=== PATIENT | female | born 1970 | race Caucasian/White ===

== ENCOUNTER 2016-08-06 18:54 | Emergency (ER) | payer OTHER ==
[~2016-08-06] VITALS: Ht 160 cm; Wt 97.7 kg
[~2016-08-06 18:54] MED LIST: ASPI325T45 PO; BUPR8MIS SL; CHN5 PO; GABA800T PO; GLC5 PO; HYDR50CA2 PO; HYDR50TA3 PO; LEDI1TAB PO; NAPR-1169 PO; PRAV20TA PO; SENN-61 PO
[2016-08-06 18:59] VITALS: TEMP 36.8; Ht 160 cm; Wt 97.7 kg
[2016-08-06 19:25] VITALS: O2SAT 98
[2016-08-06 19:32] LABS: BASO % 0.3 %; BASO ABS # 0.03 K/uL (0-0.2); COMPLETE YES; EOS % 4.1 %; HEMATOCRIT 37.6 % (37-47); IG% 0.1 %; LYMPH % 46.4 %; LYMPH ABS # 4.03 K/uL (1.2-3.4); MEAN CELL VOLUME 85.5 fL (80-100); MEAN CORPUSCULAR HEMOGLOBIN 29.1 pg (25-34); MEAN PLATELET VOLUME 9.2 fL (7.4-10.4); NEUT % 42.1 %; PLATELET COUNT 290 K/uL (130-400); WHITE BLOOD COUNT 8.69 K/uL (4.8-10.8)
[2016-08-06 19:45] LABS: PROTHROMBIN TIME (PATIENT) 10.2 SECONDS (9.0-12.0)
[2016-08-06 19:54] LABS: ALT/SGPT 25 U/L (12-78); AST/SGOT 25 U/L (15-37); BLOOD UREA NITROGEN 14 mg/dl (7-18); BUN/CREATININE RATIO 13.5 (10-20); CALCIUM 8.7 mg/dl (8.5-10.1); CARBON DIOXIDE 31 mmol/L (21-32); CHLORIDE 99 mmol/L (98-107); GLUCOSE 149 mg/dl (70-99); MAGNESIUM 2.2 mg/dl (1.8-2.4); POTASSIUM 2.8 mmol/L (3.5-5.1); SODIUM 137 mmol/L (136-145)
[2016-08-06 20:03] LABS: ALKALINE PHOSPHATASE 96 U/L (45-117); C-REACTIVE PROTEIN 1.68 mg/dl (0-0.29)
[2016-08-06] MEDS ORDERED: POTASSIUM CHLORIDE 10 MEQ TABCR PO STA (20:23)
[2016-08-06] MEDS ORDERED: POTASSIUM CHLORIDE 10 MEQ / 100ML WTR IV STA (20:23)
--- NOTE | 2016-08-06 20:33 | DIAGNOSTIC IMAGING REPORT ---
ULTRASOUND BILATERAL LOWER EXTREMITY VENOUS CLINICAL HISTORY: Lower extremity edema. COMPARISON STUDY: Right lower extremity venous ultrasound dated 09/16/2015. TECHNIQUE: Real-time, grayscale, and color Doppler sonography of the deep veins of the right and left lower extremity was performed from the inguinal crease to the calf. Compression and augmentation were utilized. FINDINGS: There is no sonographic evidence of deep venous thrombosis identified in the right or left lower extremity. The common femoral, superficial femoral, and popliteal veins are patent and normally compressible bilaterally. The greater saphenous vein and the profunda femoris vein at the junction with the common femoral vein are clear in both legs. The visualized calf veins are patent bilaterally. IMPRESSION: There is no sonographic evidence of deep venous thrombosis identified in the right or left lower extremity. Electronically signed by: Wenceslao Hall M.D. 08/06/2016 8:32 PM Dictated Date/Time: 08/06/2016 8:31 PM
[2016-08-06] MEDS ORDERED: IBUP-1428 PO (20:41)
[2016-08-06] MEDS ORDERED: BSP/5 PO (20:41)
[2016-08-06] MEDS ORDERED: DOXE50CA3 PO (20:41)
--- NOTE | 2016-08-06 20:43 | DIAGNOSTIC IMAGING REPORT ---
RIGHT KNEE 2 VIEWS CLINICAL HISTORY: Right knee pain and swelling. FINDINGS: AP and crosstable lateral views of the right knee are compared to study dated 09/16/2015. The skeletal structures are well mineralized. No fracture is seen. There is mild to moderate tricompartmental degenerative joint space narrowing, greatest in the medial and patellofemoral compartments. There are small patellar enthesophytes and marginal osteophytes. A large joint effusion is noted. Mild soft tissue swelling is present around the knee. IMPRESSION: Joint effusion and soft tissue swelling. No acute bony abnormality is identified. Electronically signed by: Wenceslao Hall M.D. 08/06/2016 8:42 PM Dictated Date/Time: 08/06/2016 8:41 PM
[2016-08-06] MEDS ORDERED: POTA20TA13 PO (22:38)
[2016-08-06 22:50] VITALS: BP 130/67; PULSE 76; O2SAT 98
[2016-08-06 23:01] LABS: LYME DISEASE AB IGG NEG (NEG); LYME DISEASE AB IGM NEG (NEG)
--- NOTE | 2016-08-06 23:47 | EMERGENCY ROOM VISIT NOTE ---
History Report prepared by Rina: Nel Vera Under the Supervision of: Dr. Virgilio Patel M.D. First contact with patient: 19:03 Chief Complaint: SWELLING TO EXTREMITY Stated Complaint: SEVERE RT LEG PAIN AND SWELLING History of Present Illness The patient is a 45 year old female who presents to the Emergency Room with complaints of worsening right knee pain for the past 3 days. The patient had surgery meniscus repair surgery on her right knee in January 2016. She states that she fell on the knee multiple times over the winter. She has had chronic pain in that knee for a few weeks. Over the last 3 days her pain has become much more intense and her right knee has started to swell. Walking exacerbates her pain and she states that she was unable to walk two blocks today. The patient also reports muscle soreness in her thighs and calves. She feels like her hands, feet, knees, and tongue are swollen. Her mouth is sore. The patient saw her PCP yesterday for her pain. X-rays were ordered, but not taken, and she was told to come to the ED with any worsening symptoms. The patient rates her current pain as a 7/10 in severity. She has been taking ibuprofen every 6 hours for her pain. She takes Suboxone but has not taken in the past 24 hours because of her mouth soreness. Pt denies LOC, headache, fevers, chills, diaphoresis, visual changes, neck pain, chest pain, breathing difficulties, nausea, vomiting , abdominal pain, melena, hematochezia, urinary symptoms, numbness, lymphadenopathy, rash, or other complaints. Source of History: patient Onset: 3 days ago Position: knee (right) Symptom Intensity: 7/10 Quality: other (soreness) Timing: worsening Modifying Factors (Worsening): other (walking) Note: Pt notes mouth soreness and swelling to right knee. Review of Systems See HPI for pertinent positives and negatives. A total of ten systems were reviewed and were otherwise negative. Past Medical & Surgical Medical Problems: (1) Bipolar Disorder, Unspecified (2) Chronic Gingivitis, Plaque Induced (3) Hepatitis Nos Family History FHx: diabetes mellitus Social History Smoking Status: Current Every Day Smoker Alcohol Use: none Drug Use: none Marital Status: other Occupation Status: employed Current/Historical Medications Scheduled Buprenorphine Hcl-Naloxone Hcl (Suboxone 8-2 Mg), 1 EA SL QAM Buspirone HCl (Buspirone HCl), 5 MG PO BID Doxepin (Sinequan), 50 MG PO HS Gabapentin (Neurontin), 800 MG PO QID Glipizide (Glipizide), 1 TAB PO BID Hydrochlorothiazide (Hctz), 50 MG PO QAM Potassium Chloride Microencaps (Potassium Chloride Er), 1 TAB PO DAILY Pravastatin Sodium (Pravachol), 10 MG PO HS Scheduled PRN Hydroxyzine Pamoate (Vistaril), 50 MG PO Q6H PRN for Anxiety Ibuprofen (Motrin), 800 MG PO TID PRN for Pain Allergies Coded Allergies: No Known Allergies (Verified , 11/12/15) Physical Exam Vital Signs Date Time Temp Pulse Resp B/P (MAP) Pulse Ox O2 Delivery O2 Flow Rate FiO2 08/06/16 22:50 76 16 130/67 98 08/06/16 20:54 78 16 128/76 99 Room Air 08/06/16 19:33 87 08/06/16 19:25 98 Room Air 08/06/16 18:59 36.8 94 18 130/84 95 Room Air Physical Exam GENERAL: Awake, alert, well-appearing, in no distress HENT: Normocephalic, atraumatic. Oropharynx unremarkable. EYES: Normal conjunctiva. Sclera non-icteric. NECK: Supple. No nuchal rigidity. FROM. No JVD. RESPIRATORY: Clear to auscultation. CARDIAC: Regular rate, normal rhythm. Extremities warm and well perfused. Pulses equal. ABDOMEN: Soft, non-distended. No tenderness to palpation. No rebound or guarding. No masses. RECTAL: Deferred. MUSCULOSKELETAL: Chest examination reveals no tenderness. The back is symmetrical on inspection without obvious abnormality. There is no CVA tenderness to palpation. No joint edema. LOWER EXTREMITIES: 1+ edema bilaterally. The right knee is mildly swollen with ROM limited secondary to pain. No erythema or warmth. Mild anterior tenderness to palpation. NEURO: Normal sensorium. No sensory or motor deficits noted. SKIN: No rash or jaundice noted. Medical Decision & Procedures ER Provider Diagnostic Interpretation: Radiology results as stated below per my review and radiologist interpretation: ULTRASOUND BILATERAL LOWER EXTREMITY VENOUS CLINICAL HISTORY: Lower extremity edema. COMPARISON STUDY: Right lower extremity venous ultrasound dated 09/16/2015. TECHNIQUE: Real-time, grayscale, and color Doppler sonography of the deep veins of the right and left lower extremity was performed from the inguinal crease to the calf. Compression and augmentation were utilized. FINDINGS: There is no sonographic evidence of deep venous thrombosis identified in the right or left lower extremity. The common femoral, superficial femoral, and popliteal veins are patent and normally compressible bilaterally. The greater saphenous vein and the profunda femoris vein at the junction with the common femoral vein are clear in both legs. The visualized calf veins are patent bilaterally. IMPRESSION: There is no sonographic evidence of deep venous thrombosis identified in the right or left lower extremity. Electronically signed by: Wenceslao Hall M.D. 08/06/2016 8:32 PM Dictated Date/Time: 08/06/2016 8:31 PM RIGHT KNEE 2 VIEWS CLINICAL HISTORY: Right knee pain and swelling. FINDINGS: AP and crosstable lateral views of the right knee are compared to study dated 09/16/2015. The skeletal structures are well mineralized. No fracture is seen. There is mild to moderate tricompartmental degenerative joint space narrowing, greatest in the medial and patellofemoral compartments. There are small patellar enthesophytes and marginal osteophytes. A large joint effusion is noted. Mild soft tissue swelling is present around the knee. IMPRESSION: Joint effusion and soft tissue swelling. No acute bony abnormality is identified. Electronically signed by: Wenceslao Hall M.D. 08/06/2016 8:42 PM Dictated Date/Time: 08/06/2016 8:41 PM Laboratory Results 08/06/16 19:21 Red Blood Count 4.40, Mean Corpuscular Volume 85.5, Mean Corpuscular Hemoglobin 29.1, Mean Corpuscular Hemoglobin Concent 34.0, Mean Platelet Volume 9.2, Neutrophils (%) (Auto) 42.1, Lymphocytes (%) (Auto) 46.4, Monocytes (%) (Auto) 7.0, Eosinophils (%) (Auto) 4.1, Basophils (%) (Auto) 0.3, Neutrophils # (Auto) 3.65, Lymphocytes # (Auto) 4.03, Monocytes # (Auto) 0.61, Eosinophils # (Auto) 0.36, Basophils # (Auto) 0.03 08/06/16 19:21 Test 08/06/16 19:21 White Blood Count 8.69 K/uL (4.8-10.8) Red Blood Count 4.40 M/uL (4.2-5.4) Hemoglobin 12.8 g/dL (12.0-16.0) Hematocrit 37.6 % (37-47) Mean Corpuscular Volume 85.5 fL (80-100) Mean Corpuscular Hemoglobin 29.1 pg (25-34) Mean Corpuscular Hemoglobin Concent 34.0 g/dl (32-36) Platelet Count 290 K/uL (130-400) Mean Platelet Volume 9.2 fL (7.4-10.4) Neutrophils (%) (Auto) 42.1 % Lymphocytes (%) (Auto) 46.4 % Monocytes (%) (Auto) 7.0 % Eosinophils (%) (Auto) 4.1 % Basophils (%) (Auto) 0.3 % Neutrophils # (Auto) 3.65 K/uL (1.4-6.5) Lymphocytes # (Auto) 4.03 K/uL (1.2-3.4) Monocytes # (Auto) 0.61 K/uL (0.11-0.59) Eosinophils # (Auto) 0.36 K/uL (0-0.5) Basophils # (Auto) 0.03 K/uL (0-0.2) RDW Standard Deviation 44.6 fL (36.4-46.3) RDW Coefficient of Variation 14.2 % (11.5-14.5) Immature Granulocyte % (Auto) 0.1 % Immature Granulocyte # (Auto) 0.01 K/uL (0.00-0.02) Erythrocyte Sedimentation Rate 26 mm/hr (0-21) Prothrombin Time 10.2 SECONDS (9.0-12.0) Prothromb Time International Ratio 1.0 (0.9-1.1) Activated Partial Thromboplast Time 26.1 SECONDS (21.0-31.0) Partial Thromboplastin Ratio 1.0 Anion Gap 7.0 mmol/L (3-11) Est Creatinine Clear Calc Drug Dose 77.4 ml/min Estimated GFR () 77.7 Estimated GFR (Non- 67.0 BUN/Creatinine Ratio 13.5 (10-20) Calcium Level 8.7 mg/dl (8.5-10.1) Magnesium Level 2.2 mg/dl (1.8-2.4) Total Bilirubin 0.3 mg/dl (0.2-1) Direct Bilirubin < 0.1 mg/dl (0-0.2) Aspartate Amino Transf (AST/SGOT) 25 U/L (15-37) Alanine Aminotransferase (ALT/SGPT) 25 U/L (12-78) Alkaline Phosphatase 96 U/L (45-117) Total Creatine Kinase 232 U/L (26-192) Troponin I < 0.015 ng/ml (0-0.045) C-Reactive Protein 1.68 mg/dl (0-0.29) Pro-B-Type Natriuretic Peptide 25 pg/ml (0-450) Total Protein 7.5 gm/dl (6.4-8.2) Albumin 3.5 gm/dl (3.4-5.0) Lipase 282 U/L (73-393) Thyroid Stimulating Hormone (TSH) 1.750 uIu/ml (0.300-4.500) Lyme Disease IgG Antibody NEG (NEG) Lyme Disease IgM Antibody NEG (NEG) Laboratory results reviewed by me. Medications Administered Medications (Trade) Dose Ordered Sig/Vamshi Route Start Time Stop Time Status Last Admin Dose Admin Potassium Chloride (Kcl 10 Meq / Wtr) 10 meq NOW STAT IV 08/06/16 20:23 08/06/16 20:24 DC 08/06/16 20:36 10 MEQ Potassium Chloride (Klor-Con M10) 40 meq NOW STAT PO 08/06/16 20:23 08/06/16 20:24 DC 08/06/16 20:37 40 MEQ ED Course 1902: The patient was evaluated in room B5. A complete history and physical exam was performed. 2022: Klor-Con M10 40 meq PO, Potassium Chloride 10 meq IV 2147: I updated the patient on her results. 2200: I spoke with Dr. Woodard, the patient's orthopedist. We discussed her case and he is in agreement with the treatment plan. He would like the patient to follow-up in the office on Monday. 2220: I reassessed the patient at this time. She is feeling better and resting comfortably. I discussed the results and treatment plan with the patient. I answered all pertaining questions that she had. She expressed understanding and verbalized agreement. The patient will be discharged home. Medical Decision Medication Reconciliation: I attest that I have personally reviewed the patient' s current medication list Blood pressure screening: Patient was found to have an elevated blood pressure and was referred to their primary doctor for recheck and further treatment. Triage Nursing notes reviewed. The patient's presentation and history were concerning for knee and leg swelling with myalgias. Etiologies such as DVT, joint effusion, infection, trauma, muscular, lymphedema , idiopathic, CHF, as well as others were entertained. The patient was evaluated. She did have some swelling in her leg and a mild knee effusion without signs of infection. Blood work and imaging was ordered. The patient's CBC did not reveal any significant leukocytosis however her chemistry panel did reveal moderate hypokalemia. She was given IV and oral potassium. X-ray imaging of the right knee reveals an effusion but no evidence of fracture or dislocation. The patient has no evidence of blood clot in either leg by ultrasound imaging. Her blood work was unremarkable for any elevation of her white blood cell count. She has a minimal elevation of ESR and CRP. She also has a minimal elevation of her total CK. She has no findings to suggest rhabdomyolysis. The patient does not have a fever. There is no signs of infection on physical examination. The patient states that she has not used any IV drugs for well over one year. I discussed immobilization while ambulating with a knee immobilizer the patient was in agreement. I did discuss the case with her orthopedist, Dr. Miki Woodard. Given the findings on the workup and her physical exam he agreed with conservative management and will see the patient first thing this week in the office. The patient will need close follow-up with her primary physician as well. She will need to have her potassium and muscle enzymes rechecked. She may have a mild myositis developing. If she worsens in any way she will be back. By the evaluation outlined above other emergent etiologies such as those listed in the differential, as well as others, were deemed relatively unlikely. The patient was educated about the findings as listed above. All questions were answered and the patient was pleased with the treatment. Return instructions were outlined and the patient was discharged in stable condition. The patient was referred to her PCP and orthopedist for follow-up for a recheck of the current condition. Consults Time Called: 2147 Consulting Physician: Dr. Woodard Returned Call: [address] Woodard, the patient's orthopedist. We discussed her case and he is in agreement with the treatment plan. He would like the patient to follow-up in the office on Monday. Impression Primary Impression: Hypokalemia Additional Impressions: Right knee pain Effusion, right knee Myalgia Scribe Attestation The scribe's documentation has been prepared under my direction and personally reviewed by me in its entirety. I confirm that the note above accurately reflects all work, treatment, procedures, and medical decision making performed by me. Departure Information Dispostion Home / Self-Care Prescriptions Potassium Chloride Microencaps (POTASSIUM CHLORIDE ER) 20 Meq Tab 1 TAB PO DAILY for 3 Days, #3 TAB Prov: Virgilio Patel MD 08/06/16 Referrals Yoko Urbina PA-C, Paul S., M.D. Forms HOME CARE DOCUMENTATION FORM, IMPORTANT VISIT INFORMATION, WORK / SCHOOL INSTRUCTIONS Patient Instructions My [facility] Additional Instructions Continue your current medications. Potassium 20 mEq daily for the next 3 days. Ibuprofen(Motrin, Advil) may be used for fever or pain. Use 600mg every six hours as needed. Take with food. Avoid using more than 2400mg in a 24 hour period. Do not use 2400mg per day for more than three consecutive days without physician direction. Prolonged inappropriate use can lead to stomach upset or ulcers. (AND/OR) Acetaminophen(Tylenol) may be used for fever or pain. Use 1000mg every six hours as needed. Avoid using more than 4000mg in a 24 hour period. Ice compresses for 20 minutes at a time four times daily for 2-3 days. Use the brace as instructed. Remove your leg from the brace 4-6 times a day and move all the joints around to keep them loose. Rest and elevate your legs. Do not get the splint wet. If your splint feels excessively tight, you have worsening pain, develop numbness or tingling, or your digits appear blue, loosen the stanton wrap. Then reapply the stanton wrap gently without removing the splint. If your symptoms are not quickly relieved return to the ER for re- evaluation. Return to the ER immediately for any fever, redness of the leg, chest pain, abdominal pain, vomiting, numbness, tingling, severe pain, extreme swelling in the extremity or as needed. Call [facility], [phone], Monday morning to arrange follow up for your leg with Dr. Woodard. Tell the unit secretary he is aware of your Emergency Room visit and will see you in the office. Follow-up with your primary care physician in 2 to 3 days for a recheck of your current condition and a recheck of your potassium and muscle enzymes are necessary. Problem Qualifiers Additional Impressions: Right knee pain Chronicity: acute Qualified Codes: M25.561 - Pain in right knee
== END 2016-08-06 22:57 | disposition home or self-care (01) ==
LOC: C.EDB 18:56
DX: E87.6 Hypokalemia (principal); M25.561 Pain in right knee; M25.461 Effusion, right knee; M79.1 Myalgia; F31.9 Bipolar disorder, unspecified; K75.9 Inflammatory liver disease, unspecified; K05.10 Chronic gingivitis, plaque induced; Z83.3 Family history of diabetes mellitus; F17.210 Nicotine dependence, cigarettes, uncomplicated; Z79.899 Other long term (current) drug therapy

== ENCOUNTER 2016-11-19 14:01 | Emergency (ER) | payer OTHER ==
[~2016-11-19] VITALS: Ht 160 cm; Wt 98.4 kg
[~2016-11-19 14:01] MED LIST changes: -ASPI325T45 PO; +BSP/5 PO; -CHN5 PO; +DOXE50CA3 PO; +IBUP-1428 PO; -LEDI1TAB PO; -NAPR-1169 PO; +POTA20TA13 PO; -SENN-61 PO
[2016-11-19 14:03] VITALS: TEMP 36.7; Ht 160 cm; Wt 98.4 kg
--- NOTE | 2016-11-19 14:29 | EMERGENCY ROOM VISIT NOTE ---
ED Visit Note First contact with patient: 14:12 CHIEF COMPLAINT: Lesions on scalp HISTORY OF PRESENT ILLNESS: This 46-year-old female presents the ER with chief complaint of a palpable small lumps that started like pimples on her scalp. She states her symptoms started September 20 and she has gone to her PCP on several occasions since that time for recurrence. She initially was placed on Keflex 500 mg 4 times a day and a completely resolved. She states then she got it back and the doctor only gave her 250 mg tablets and it did not completely resolve. She states then it has gotten progressively worse. The patient states this mainly towards the back of her head. The patient denies any fever or any lesions on other parts of her body. REVIEW OF SYSTEMS: 6 system review was performed and was negative unless stated otherwise in history of present illness. PMH: The patient is healthy; diabetes, hypertension, kidney stones, 3, 2 knee surgeries, cervical fusion 2 SOCIAL HISTORY: Patient lives with her father and her son. The patient admits to tobacco use but denies any alcohol use. PHYSICAL EXAM: Vital Signs: Were reviewed reviewed. Reviewed nursing notes. GEN.: 46-year-old white female appears in no acute distress. MENTAL Status: Alert and oriented 3. SCALP: There are multiple scabbed papules on the patient 's posterior scalp. There is no active purulent drainage at this time. Remainder of skin is clear. EMERGENCY COURSE: The patient stated that she does not have any prescription coverage and would like me to make sure that the antibiotics are not that expensive. I consulted the [facility] $4 antibiotics and we will be able to treat the patient and inexpensively. The patient was discharged home in stable condition DIAGNOSIS: Folliculitis scalp DISCHARGE INSTRUCTIONS & TREATMENT: Keflex 500 mg 4 times a day for 10-14 days. Bactrim DS one tablet twice daily for 10 days. Continue head injury and shampoo. If symptoms persist would recommend follow-up with dermatology. Problem List Medical Problems: (1) Bipolar Disorder, Unspecified Status: Chronic (2) Chronic Gingivitis, Plaque Induced Status: Chronic (3) Hepatitis Nos Status: Chronic Current/Historical Medications Scheduled Buprenorphine Hcl-Naloxone Hcl (Suboxone 8-2 Mg), 1 EA SL QAM Buspirone HCl (Buspirone HCl), 5 MG PO BID Doxepin (Sinequan), 50 MG PO HS Gabapentin (Neurontin), 800 MG PO QID Glipizide (Glipizide), 1 TAB PO BID Hydrochlorothiazide (Hctz), 50 MG PO QAM Potassium Chloride Microencaps (Potassium Chloride Er), 1 TAB PO DAILY Pravastatin Sodium (Pravachol), 10 MG PO HS Scheduled PRN Hydroxyzine Pamoate (Vistaril), 50 MG PO Q6H PRN for Anxiety Ibuprofen (Motrin), 800 MG PO TID PRN for Pain Allergies Coded Allergies: No Known Allergies (Verified , 11/12/15) Vital Signs Date Time Temp Pulse Resp B/P (MAP) Pulse Ox O2 Delivery O2 Flow Rate FiO2 11/19/16 14:03 36.7 101 20 156/107 96 Room Air Departure Information Referrals No Doctor, Assigned (PCP) Patient Instructions My [facility]
[2016-11-19] MEDS ORDERED: CEPH500C2 PO (14:33)
[2016-11-19] MEDS ORDERED: SULF800T23 PO (14:33)
[2016-11-19 14:49] VITALS: BP 134/80; PULSE 80; O2SAT 96
== END 2016-11-19 14:50 | disposition home or self-care (01) ==
LOC: C.EDB 14:02 → C.EDD 14:50
DX: L73.9 Follicular disorder, unspecified (principal); E11.9 Type 2 diabetes mellitus without complications; I10 Essential (primary) hypertension; F17.200 Nicotine dependence, unspecified, uncomplicated; Z87.442 Personal history of urinary calculi; F31.9 Bipolar disorder, unspecified; K05.10 Chronic gingivitis, plaque induced; K73.9 Chronic hepatitis, unspecified

== ENCOUNTER → 2017-01-13 | Outpatient (CLI) | payer OTHER ==
[~2017-01-13] MED LIST changes: +CEPH500C2 PO; +OPTIRAY 320 IV PRN; -POTA20TA13 PO
[2017-01-13 14:32] LABS: ISTAT CREATININE 0.8 mg/dl (0.6-1.3); ISTAT HEMOGLOBIN 13.9 g/dl (12.0-16.0); ISTAT IONIZED CALCIUM 1.16 mmol/l (1.12-1.32)
--- NOTE | 2017-01-13 14:47 | DIAGNOSTIC IMAGING REPORT ---
CT SCAN OF THE NECK WITH IV CONTRAST CLINICAL HISTORY: Soft tissue swelling. COMPARISON STUDY: CT scan of the cervical spine dated 03/12/2006. TECHNIQUE: Following the IV administration of 94 cc of Optiray 320, CT scan of the soft tissues of the neck was performed from the skull base to the upper chest. Images are reviewed in the axial, sagittal, and coronal planes. IV contrast was administered without complication. A dose lowering technique was utilized adhering to the principles of ALARA. CT DOSE: 445.94 mGycm FINDINGS: Pharynx: The nasopharynx, oropharynx, and laryngeal pharynx are normal in appearance. The pharyngeal airway is widely patent. There is no evidence of mass lesion. The vocal cords are symmetric. The parapharyngeal fat is well maintained. The prevertebral/retropharyngeal soft tissues are within normal limits. Lymphadenopathy: There are tiny suboccipital lymph nodes identified. These measure up to 8 mm in maximum length and correspond to the sites of palpable concern (located deep to the cutaneous markers). These are similar appearance to [address] Minimal stranding is suggested around the right suboccipital node on image #86. No pathologically enlarged cervical lymph nodes are identified. Thyroid: Normal in size and attenuation. Salivary glands: The parotid and submandibular glands are within normal limits. Brain parenchyma: The visualized brain parenchyma at the skull base is normal in appearance. Vascular structures: The internal carotid arteries and jugular veins are widely patent. Skeletal structures: Imaged portions of the calvarium at the skull base are within normal limits. The cervical spine appears intact. There are postoperative changes from anterior fusion seen from C4 to C7. Sinuses and mastoids: The visualized paranasal sinuses are clear. The mastoid air cells are well pneumatized. Orbits: The bony orbits are intact. Orbital contents are normal in appearance. Lung apices: Small foci of groundglass opacification are present within the partially imaged upper lobes. IMPRESSION: 1. There are prominent suboccipital lymph nodes identified at the indicated sites of interest. These measure up to 8 mm in maximum length, and were also seen on the 03/12/[address] These are of low suspicion. Minimal stranding suggested around one of these nodes and this may be on a reactive basis. 2. No pathologically enlarged lymph node or concerning mass lesion is identified in the neck. 3. Scattered airspace opacities are suggested in the upper lobes bilaterally. Correlate clinically for evidence of a mild infectious/inflammatory pneumonitis. Follow-up chest x-ray is recommended. Electronically signed by: Wenceslao Hall M.D. 01/13/2017 2:45 PM Dictated Date/Time: 01/13/2017 2:37 PM
== END | disposition home or self-care (01) ==
LOC: C.CTS 14:00
PROVIDERS: ATTEND Physician Assistant
DX: R22.1 Localized swelling, mass and lump, neck (principal); K11.20 Sialoadenitis, unspecified

== ENCOUNTER 2017-01-16 11:11 | Emergency (ER) | payer OTHER ==
[~2017-01-16] VITALS: Ht 160 cm; Wt 99.2 kg
[~2017-01-16 11:11] MED LIST changes: -OPTIRAY 320 IV PRN
[2017-01-16 11:18] VITALS: TEMP 37; Ht 160 cm; Wt 99.2 kg
[2017-01-16 12:30] LABS: MANUAL MICROSCOPIC REQUIRED? NO; REVIEW REQ? NO; URINE APPEARANCE CLEAR (CLEAR); URINE BILIRUBIN NEG (NEG); URINE COLOR YELLOW; URINE NITRITE NEG (NEG); UROBILINOGEN NEG (NEG); ZZUR CULT IF INDIC CLEAN CATCH NO
[2017-01-16 12:52] LABS: BASO % 0.3 %; BASO ABS # 0.02 K/uL (0-0.2); COMPLETE YES; EOS % 4.6 %; HEMATOCRIT 40.5 % (37-47); LYMPH % 27.7 %; LYMPH ABS # 1.62 K/uL (1.2-3.4); MEAN CELL VOLUME 87.3 fL (80-100); MEAN CORPUSCULAR HEMOGLOBIN 29.5 pg (25-34); MEAN CORPUSCULAR HGB CONC 33.8 g/dl (32-36); MEAN PLATELET VOLUME 9.5 fL (7.4-10.4); MONO % 6.8 %; NEUT % 60.6 %; PLATELET COUNT 309 K/uL (130-400); RED BLOOD COUNT 4.64 M/uL (4.2-5.4); WHITE BLOOD COUNT 5.84 K/uL (4.8-10.8)
[2017-01-16 13:03] LABS: BENZODIAZEPINE, URINE NEG (NEG); COCAINE,URINE NEG (NEG); PHENCYCLIDINE, URINE NEG (NEG)
[2017-01-16 13:04] LABS: BUN/CREATININE RATIO 12.8 (10-20); CALCIUM 9.6 mg/dl (8.5-10.1); CREATININE 0.88 mg/dl (0.60-1.20); POTASSIUM 3.2 mmol/L (3.5-5.1)
[2017-01-16 13:08] LABS: ALB/GLOB RATIO 0.8 (0.9-2)
[2017-01-16 13:16] VITALS: BP 141/94; PULSE 87; O2SAT 94
--- NOTE | 2017-01-16 13:40 | EMERGENCY ROOM VISIT NOTE ---
History First contact with patient: 11:42 Chief Complaint: SKIN PROBLEM Stated Complaint: BLISTERS,SWELLING,PAIN History of Present Illness The patient is a 46 year old female who presents to the Emergency Room with several chronic complaints. The patient states she has been experiencing blisters and swelling in her mouth. She states when she was attempting to awaken this morning, she was unable to wake herself up and get out of bed. She did wake up again her son off to school, but after he left, she went back to sleep. She states when she awoke again, she was feeling tingly all over and still felt like she was half asleep. The patient states she also has had lesions on the back of her head, which she has seen dermatology for, but she is unable to afford the antibiotics so has not picked it up. She states she has swelling of her lymph nodes in the back of her head, and did have a CT scan performed on Monday. The patient is also complaining of intermittent chronic parotid gland swelling, worse when she eats. She has been several places for all of her problems, several times in the emergency department, her PCP, her psychiatrist, dermatology, and psychiatry. She states she has been on antibiotics several times for the blisters and swelling in her mouth, as well as the lesions on her head. She has not followed up regarding the CT scan results. Symptoms have been ongoing since September of this year, and some symptoms have been going on for longer than that. The patient does have a drug abuse history, but denies any drug use now. She states she feels like her whole body is swollen, and her mouth hurts, which is making it difficult for her to eat. She contacted her PCP prior to coming here, and was advised to come to the emergency department, as her PCP did not have any openings. The patient states she has not had any lab work or any other workup completed regarding her chronic problems. She admits to decreased appetite, cough, congestion for 2-3 weeks, and states the upper respiratory infection symptoms are improving. Review of Systems A complete 10 point review of systems was reviewed with the patient with pertinent positives and negatives as per history of present illness. All else were negative. Past Medical/Surgical History Medical Problems: (1) Bipolar Disorder, Unspecified (2) Chronic Gingivitis, Plaque Induced (3) Hepatitis Nos Family History FHx: diabetes mellitus Social History Smoking Status: Current Every Day Smoker Smokeless Tobacco Use: No Alcohol Use: none Drug Use: none Marital Status: other Housing Status: lives with family Occupation Status: employed Current/Historical Medications Scheduled Buprenorphine Hcl-Naloxone Hcl (Suboxone 8-2 Mg), 1 EA SL BID Buspirone HCl (Buspirone HCl), 5 MG PO BID Doxepin (Sinequan), 50 MG PO HS Gabapentin (Neurontin), 800 MG PO QID Glipizide (Glipizide), 1 TAB PO BID Hydrochlorothiazide (Hctz), 50 MG PO QAM Pravastatin Sodium (Pravachol), 10 MG PO HS Scheduled PRN Hydroxyzine Pamoate (Vistaril), 50 MG PO Q6H PRN for Anxiety Ibuprofen (Motrin), 800 MG PO TID PRN for Pain Allergies None Physical Exam Vital Signs Date Time Temp Pulse Resp B/P (MAP) Pulse Ox O2 Delivery O2 Flow Rate FiO2 01/16/17 13:16 87 14 141/94 94 Room Air 01/16/17 11:18 37.0 100 18 155/108 94 Room Air Physical Exam VITALS: Vitals are noted on the nurse's note and reviewed by myself. Vital signs stable. GENERAL: This is an obese, 46-year-old white female, in no acute distress, nondiaphoretic, well-developed well-nourished. SKIN: Yellow-rogelio crusts noted in several places on the back of the patient's scalp. These are not draining fluid. They are not erythematous. The skin was without erythema, edema, or bruising. There is no tenting of the skin. Capillary reflex less than 2 seconds. HEAD: Normocephalic atraumatic. EARS: External auditory canals clear, tympanic membranes pearly moreland without erythema or effusion bilaterally. EYES: Pupils equal round and reactive to light and accommodation. Conjunctivae without injection, sclerae without icterus. Extraocular movements intact. NOSE: Patent, turbinates without inflammation or discharge. No sinus tenderness. MOUTH: Mucous membranes moist. There are several ulcers which have burst with skin remaining throughout the mouth, worse on the tongue on the left. No erythema. Tonsils are not enlarged. Pharynx without erythema or exudate. Uvula midline. Airway patent. Tongue does not deviate. NECK: Supple without nuchal rigidity. No lymphadenopathy. No thyromegaly. Cervical spine is nontender. No JVD. HEART: Regular rate and rhythm without murmurs gallops or rubs. LUNGS: Clear to auscultation bilaterally without wheezes, rales or rhonchi. No dullness to percussion. No retractions or accessory muscle use. MUSCULOSKELETAL: No muscle atrophy, erythema, or edema noted. Full range of motion without joint tenderness in all extremities. No tenderness to palpation. Normal gait. Strength 5/5 throughout. NEURO: Patient was alert and oriented to person place and time. Normal sensation to light and sharp touch. Deep tendon reflexes 2+ throughout. No focal neurological deficits. Medical Decision & Procedures ER Provider Diagnostic Interpretation: Urinalysis and urine drug screen was without significant abnormalities. CBC did not reveal any leukocytosis, anemia, thrombocytopenia. CMP did show a low potassium of 3.1. Renal and hepatic function testing was normal. Blood sugar was elevated at 190. Electrolytes are without abnormality. Iron testing was without abnormality. ESR was slightly elevated at 24. Full at acid level was normal. Vitamin B12 was within normal limits, however it was slightly low. Laboratory Results 01/16/17 12:29 Red Blood Count 4.64, Mean Corpuscular Volume 87.3, Mean Corpuscular Hemoglobin 29.5, Mean Corpuscular Hemoglobin Concent 33.8, Mean Platelet Volume 9.5, Neutrophils (%) (Auto) 60.6, Lymphocytes (%) (Auto) 27.7, Monocytes (%) (Auto) 6.8, Eosinophils (%) (Auto) 4.6, Basophils (%) (Auto) 0.3, Neutrophils # (Auto) 3.53, Lymphocytes # (Auto) 1.62, Monocytes # (Auto) 0.40, Eosinophils # (Auto) 0.27, Basophils # (Auto) 0.02 01/16/17 12:29 Test 01/16/17 12:15 01/16/17 12:25 01/16/17 12:29 Urine Color YELLOW Urine Appearance CLEAR (CLEAR) Urine pH 7.0 (4.5-7.5) Urine Specific Thatcher 1.010 (1.000-1.030) Urine Protein NEG (NEG) Urine Glucose (UA) NEG (NEG) Urine Ketones NEG (NEG) Urine Occult Blood 1+ (NEG) Urine Nitrite NEG (NEG) Urine Bilirubin NEG (NEG) Urine Urobilinogen NEG (NEG) Urine Leukocyte Esterase NEG (NEG) Urine WBC (Auto) 1-5 /hpf (0-5) Urine RBC (Auto) 0-4 /hpf (0-4) Urine Hyaline Casts (Auto) 0 /lpf (0-5) Urine Epithelial Cells (Auto) 10-20 /lpf (0-5) Urine Bacteria (Auto) NEG (NEG) Urine Opiates Screen NEG (NEG) Urine Methadone, Qualitative NEG (NEG) Urine Barbiturates NEG (NEG) Urine Phencyclidine (PCP) Level NEG (NEG) Ur Amphetamine/Methamphetamine NEG (NEG) MDMA (Ecstasy) Screen NEG (NEG) Urine Benzodiazepines Screen NEG (NEG) Urine Cocaine Metabolite NEG (NEG) Urine Marijuana (THC) NEG (NEG) Vitamin B12 Level 413 pg/mL (211-911) Folate 19.33 ng/mL (>5.38) White Blood Count 5.84 K/uL (4.8-10.8) Red Blood Count 4.64 M/uL (4.2-5.4) Hemoglobin 13.7 g/dL (12.0-16.0) Hematocrit 40.5 % (37-47) Mean Corpuscular Volume 87.3 fL (80-100) Mean Corpuscular Hemoglobin 29.5 pg (25-34) Mean Corpuscular Hemoglobin Concent 33.8 g/dl (32-36) Platelet Count 309 K/uL (130-400) Mean Platelet Volume 9.5 fL (7.4-10.4) Neutrophils (%) (Auto) 60.6 % Lymphocytes (%) (Auto) 27.7 % Monocytes (%) (Auto) 6.8 % Eosinophils (%) (Auto) 4.6 % Basophils (%) (Auto) 0.3 % Neutrophils # (Auto) 3.53 K/uL (1.4-6.5) Lymphocytes # (Auto) 1.62 K/uL (1.2-3.4) Monocytes # (Auto) 0.40 K/uL (0.11-0.59) Eosinophils # (Auto) 0.27 K/uL (0-0.5) Basophils # (Auto) 0.02 K/uL (0-0.2) RDW Standard Deviation 45.8 fL (36.4-46.3) RDW Coefficient of Variation 14.5 % (11.5-14.5) Immature Granulocyte % (Auto) 0.0 % Immature Granulocyte # (Auto) 0.00 K/uL (0.00-0.02) Erythrocyte Sedimentation Rate 24 mm/hr (0-21) Anion Gap 9.0 mmol/L (3-11) Est Creatinine Clear Calc Drug Dose 87.8 ml/min Estimated GFR () 90.0 Estimated GFR (Non- 77.7 BUN/Creatinine Ratio 12.8 (10-20) Calcium Level 9.6 mg/dl (8.5-10.1) Iron Level 62 mcg/dl (35-150) Total Iron Binding Capacity 384 mcg/dl (250-450) Transferrin 311 mg/dl (200-360) Transferrin % Saturation 14 % (15-50) Total Bilirubin 0.3 mg/dl (0.2-1) Aspartate Amino Transf (AST/SGOT) 25 U/L (15-37) Alanine Aminotransferase (ALT/SGPT) 24 U/L (12-78) Alkaline Phosphatase 91 U/L (45-117) Total Protein 8.2 gm/dl (6.4-8.2) Albumin 3.7 gm/dl (3.4-5.0) Globulin 4.5 gm/dl (2.5-4.0) Albumin/Globulin Ratio 0.8 (0.9-2) HIV (1&2) Ab and P24 Ag, 4th Gener NEG (NEG) Medical Decision The patient was seen and evaluated as above. She has several chronic complaints , and denies any significant worsening problems today. When asked what exactly brought her to the emergency department, she states she does not know, as all of her symptoms are similar to symptoms in the past, but she is sick of not having answers regarding why she feels so lousy. Later, she states she is here because the pain is uncontrollable throughout her body. Excessive the patient proper management of chronic disease, and encouraged her to follow up outpatient. Her labs do not reveal any significant causes for her symptoms, however HIV testing is pending and I do feel that a portion of her symptoms could be related to decreased vitamin B12 level. I discussed with the patient that I also suspect a psychiatric component to her illness, and encouraged follow up outpatient with her psychiatrist. The patient states she believes she may need a new PCP, as she is pressured with her current PCP and not receive any answer she once. I did encourage this, as I feel that outpatient management is imperative for this patient. Differential diagnosis includes aphthous ulcers, HIV, HSV, Vitamin deficiency, paresthesias, fatigue, chronic pain, psychiatric etiology, Electrolyte abnormality, malignancy, and others. Medication Reconcilliation Current Medication List: was personally reviewed by me Blood Pressure Screening Patient's blood pressure: Normal blood pressure Impression Primary Impression: Aphthous ulcer Additional Impressions: Fatigue Paresthesia Chronic pain Departure Information Dispostion Home / Self-Care Condition GOOD Referrals No Doctor, Assigned (PCP) Patient Instructions ED Dermatitis Non Specific Rash, Fatigue Manage, Hypokalemia Dc, My [facility] Additional Instructions You were seen in the emergency department today for multiple chronic problems. Labs did not reveal any significant abnormality, however your vitamin B12 level was slightly decreased. I do recommend she take in OTC vitamin B12 supplement as directed daily to help. As discussed, this may help with the numbness and tingling as well as the fatigue. Your potassium level was low as well. Please consider an OTC potassium supplement or eating high potassium foods daily. Please contact your coding compliance manager regarding the skin rash on your head. Discussed with them the cost of the doxycycline, and request a more inexpensive medication. Consider follow-up with your dentist regarding the chronic mouth ulcers. HIV testing was completed, and you will receive results in a few days. Please follow -up with your PCP for these results. For the mouth ulcers, you may use OTC liquid Benadryl and liquid Maalox. Use a 1:1 mixture of these medications, swish and spit to help with the discomfort. Please follow up with your psychiatrist, as I do suspect a psychiatric component to your somatic problems. Follow-up with your primary care provider in 1-2 days for recheck and for management of all of your chronic conditions. Please return to the ED for significantly worsening symptoms or for any chest pain, dyspnea, facial drooping, slurred speech, weakness, or other new or different symptoms. Problem Qualifiers Additional Impressions: Fatigue Fatigue type: chronic, unspecified Qualified Codes: R53.82 - Chronic fatigue , unspecified Chronic pain Chronic pain type: other chronic pain Qualified Codes: G89.29 - Other chronic pain
== END 2017-01-16 13:49 | disposition home or self-care (01) ==
LOC: C.EDB 11:12 → C.EDD 13:49
DX: K12.0 Recurrent oral aphthae (principal); R53.83 Other fatigue; R20.2 Paresthesia of skin; G89.29 Other chronic pain; F31.9 Bipolar disorder, unspecified; F17.200 Nicotine dependence, unspecified, uncomplicated; Z79.891 Long term (current) use of opiate analgesic; Z79.84 Long term (current) use of oral hypoglycemic drugs; Z87.898 Personal history of other specified conditions; Z86.19 Personal history of other infectious and parasitic diseases; Z83.3 Family history of diabetes mellitus